=== PATIENT | female | born 1975 | race Caucasian/White ===

== ENCOUNTER → 2019-08-10 | Outpatient (CLI) | payer OTHER ==
--- NOTE | 2019-08-10 16:21 | WOMENS IMAGING REPORT ---
EXAM DESCRIPTION: 3D SCREENING MAMMO BILAT COMPLETED DATE/TIME: 08/10/2019 3:51 pm REASON FOR STUDY: Z12.31 SCREENING MAMMO Z12.31 ENCNTR SCREEN MAMMOGRAM FOR MALIGNANT NEOPLASM OF B RE COMPARISON: None. EXAM PARAMETERS: Views: Standard craniocaudal and mediolateral oblique views of each breast recorded using digital acquisition and breast tomosynthesis. Read with the assistance of CAD. .[facility] - [email or web address] Quality Assurance Coordinator Version 9.2 LIMITATIONS: None. FINDINGS: No suspicious masses, suspicious calcifications or architectural distortion. No areas of c oncern. IMPRESSION: NEGATIVE MAMMOGRAM. BIRADS 1. BREAST DENSITY: a. The breasts are almost entirely fatty. BIRAD: ASSESSMENT: 1 NEGATIVE RECOMMENDATION: ROUTINE SCREENING Please continue yearly bilateral screening mammography/tomosynthesis in July 2020 COMMENT: The patient has been notified of the results by letter per SA requirements. Additional no tification policies are in place for contacting patient with suspicious or incomplete findings. Quality ID #225: The [employer] recommends an annual screening mammogram for women aged 40 years or over. This facility utilizes a reminder system to ensure that all patients receive reminder letters, and/or direct phone calls for appointments. This includes reminders for routine scr eening mammograms, diagnostic mammograms, or other Breast Imaging Interventions when appropriate. Th is patient will be placed in the appropriate reminder system. TECHNICAL DOCUMENTATION: FINDING NUMBER: (1) ASSESSMENT: (1) JOB ID: [id number] [employer]- All Rights Reserved Reading location - IP/workstation name: [email or web address]
== END ==
LOC: WI 15:30
PROVIDERS: ATTEND Internal Medicine
DX: Z12.31 Encounter for screening mammogram for malignant neoplasm of breast (principal)
CPT/HCPCS: 77063; 77067

== ENCOUNTER 2020-05-16 06:41 | Observation (INO) | payer OTHER ==
[2020-05-11 12:03] LABS: ABSOLUTE BASOPHILS # (AUTO) 0.1 10^3/uL (0.0-0.2); ABSOLUTE EOSINOPHILS # (AUTO) 0.2 10^3/uL (0.0-0.6); ABSOLUTE LYMPHOCYTES (AUTO) 3.4 10^3/uL (0.5-4.7); ABSOLUTE MONOCYTES (AUTO) 0.8 10^3/uL (0.1-1.4); ABSOLUTE NEUT (AUTO) 5.9 10^3/uL (1.7-8.2); BASOPHILS % (AUTO) 1.2 % (0-2); EOSINOPHILS % (AUTO) 2.1 % (0-6); HEMATOCRIT 41.3 % (36.0-47.0); HEMOGLOBIN 13.7 g/dL (12.0-15.5); LYMPHOCYTES % (AUTO) 32.4 % (13-45); MEAN CORPUSCULAR HEMOGLOBIN 27.2 pg (27.0-33.4); MEAN CORPUSCULAR HGB CONC 33.2 g/dL (32.0-36.0); MEAN CORPUSCULAR VOLUME 82 fl (80-97); MONOCYTES % (AUTO) 7.7 % (3-13); PLATELET COUNT 442 10^3/uL (150-450); RED BLOOD COUNT 5.04 10^6/uL (3.72-5.28); RED CELL DISTRIBUTION WIDTH 17.2 % (11.5-14.0); SEGMENTED NEUTROPHILS % (AUTO) 56.6 % (42-78); TOTAL CELLS COUNTED % (AUTO) 100 %; WHITE BLOOD COUNT 10.4 10^3/uL (4.0-10.5)
[2020-05-11 12:23] LABS: ANION GAP 8 (5-19); BLOOD UREA NITROGEN 14 mg/dL (7-20); CALCIUM 9.5 mg/dL (8.4-10.2); CARBON DIOXIDE 29 mmol/L (22-30); CHLORIDE 100 mmol/L (98-107); GLUCOSE 94 mg/dL (75-110); POTASSIUM 4.9 mmol/L (3.6-5.0)
--- NOTE | 2020-05-12 10:24 | EKG REPORT ---
SEVERITY:- BORDERLINE ECG - SINUS RHYTHM PROBABLE LEFT ATRIAL ABNORMALITY BORDERLINE T ABNORMALITIES, ANT-LAT LEADS : Confirmed by: Kimberly Harper 12-May-2020 10:23:07
[~2020-05-16 06:41] MED LIST: LACTATED RINGERS 1000 ML IV PRN; LIDOCAINE 0.5% INJ-PF (5 MG/ML) 50 ML SDV SUBCUT PRN
[2020-05-16] MEDS ORDERED: CEFAZOLIN 2 GM/D5W RTU 2 GM/50 ML RTUPB IV ONE (07:47)
[2020-05-16 07:59] LABS: POTASSIUM 4.3 mmol/L (3.6-5.0)
[2020-05-16 07:59] LABS: CALCIUM 9.5 mg/dL (8.4-10.2); PHOSPHORUS 3.8 mg/dL (2.5-4.5)
[2020-05-16] MEDS ORDERED: BUPIVACAINE HCL 0.5%/EPI 1:200000 INJ 1.8 ML CARTRIDGE ONE (09:43)
[2020-05-16] MEDS ORDERED: OXYMETAZOLINE HCL 0.05% NASAL SPRAY 15 ML BOTTLE ONE (09:44)
[2020-05-16] MEDS ORDERED: PROPOFOL INJ 200 MG/20 ML VIAL IV ONE (09:45)
[2020-05-16] MEDS ORDERED: MORPHINE SULFATE 10 MG/ML INJ ONE (09:45)
[2020-05-16] MEDS ORDERED: ONDANSETRON HCL INJ/PF 4 MG/2 ML SDV ONE (09:45)
[2020-05-16] MEDS ORDERED: MIDAZOLAM 2 MG/2 ML INJ ONE (09:45)
[2020-05-16] MEDS ORDERED: FENTANYL CITRATE INJ/PF 100 MCG/2 ML AMPUL ONE (09:45)
[2020-05-16] MEDS ORDERED: MEPERIDINE HCL/PF INJ 25 MG/1 ML DISP.SYRIN IV PRN (13:25)
[2020-05-16] MEDS ORDERED: OXYCODONE-ACETAMINOPHEN 5-325 MG TABLET PO PRN ×2 (13:25)
[2020-05-16] MEDS ORDERED: MORPHINE SULFATE 10 MG/ML INJ IV PRN ×2 (13:25→14:02)
[2020-05-16] MEDS ORDERED: ONDANSETRON HCL INJ/PF 4 MG/2 ML SDV IV PRN ×2 (13:25→14:02)
[2020-05-16] MEDS ORDERED: PROMETHAZINE HCL INJ 25 MG/1 ML VIAL IV PRN ×2 (13:25→14:02)
[2020-05-16] MEDS ORDERED: FENTANYL CITRATE INJ/PF 100 MCG/2 ML AMPUL IV PRN ×3 (13:25)
[2020-05-16] MEDS: MORPHINE SULFATE 10 MG/ML INJ ONE ×2 (13:53→14:00)
[2020-05-16] MEDS ORDERED: METOCLOPRAMIDE HCL INJ/PF 10 MG/2 ML SDV ONE (14:34)
[2020-05-16] MEDS ORDERED: PHENYLEPHRINE HCL INJ/PF 10 MG/1 ML SDV ONE (14:34)
[2020-05-16] MEDS ORDERED: DIPHENHYDRAMINE HCL 50 MG/ML VIAL ONE (14:34)
[2020-05-16] MEDS ORDERED: ROCURONIUM BROMIDE INJ 50 MG/5 ML VIAL IV ONE (14:34)
[2020-05-16] MEDS ORDERED: SUCCINYLCHOLINE CHLORIDE INJ 200 MG/10 ML VIAL ONE (14:34)
[2020-05-16] MEDS ORDERED: GLUCAGON,HUMAN RECOMB 1 MG INJ IM PRN (16:35)
[2020-05-16] MEDS ORDERED: DEXTROSE 40% GEL 15 GM TUBE PO PRN ×2 (16:35)
[2020-05-16] MEDS ORDERED: DEXTROSE 50%-WATER 25 GM/50 ML DISP.SYRIN IV PRN ×2 (16:35)
[2020-05-16] MEDS ORDERED: (PENDING PHARMACY ID) (Gabapentin [Gabapentin] 800 MG) PO SCH (18:00)
[2020-05-16] MEDS ORDERED: NICOTINE 7 MG/24 HR PATCH.TD24 TD PRN (18:17)
--- NOTE | 2020-05-16 18:25 | PDOC CONSULTATION ---
Consultation Consult Date: 05/16/20 Attending physician:: SHAWNA IRVIN Provider Consulted: RENA GRADY History of Present Illness Admission Date/PCP: RICHIE OLIVER MD Patient complains of: Thyroidectomy History of Present Illness: RAJWINDER DURAN is a 44 year old female with a past medical history significant for Diabetes mellitus, hypertension, hyperlipidemia, diabetic neuropathy, gout, and obesity who was admitted by ENT, Dr. Cook, for thyroidectomy related to malignant neoplasm of the thyroid gland. Hospitalist service is consulted postoperatively for medical management. Patient was seen on afternoon rounds with her present. She is found sitting up to the edge of the bed, comfortably, on room air. Maintaining oxygen saturations of 93%. She reports that her pain is adequately controlled at present. Surgical dressing is in place with dried blood noted. All questions and concerns addressed. Reassurance provided. Patient denies fever, chills, chest pain, palpitations, dyspnea, cough, abdominal pain, nausea and vomiting. No concerns per nursing. Past Medical History Cardiac Medical History: Reports: Hyperlipidema, Hypertension Denies: Coronary Artery Disease, Myocardial Infarction Pulmonary Medical History: Reports: Other - NICOLA Neurological Medical History: Denies: Ischemic CVA, Seizures Endocrine Medical History: Reports: Diabetes Mellitus Type 2, Obesity Malignancy Medical History: Reports: Other - Thyroid GI Medical History: Reports: None Musculoskeltal Medical History: Reports: None Denies: Arthritis Skin Medical History: Reports: None Psychiatric Medical History: Reports: None Traumatic Medical History: Reports: None Hematology: Denies: Anemia Infectious Medical History: Reports: None Past Surgical History Past Surgical History: Reports: None Social History Information Source: Patient Lives with: Family Smoking Status: Current Every Day Smoker Electronic Cigarette use?: No Frequency of Alcohol Use: None Hx Recreational Drug Use: No Drugs: None Hx Prescription Drug Abuse: No - Advance Directive Resuscitation Status: Full Code Family History Family History: Reviewed & Not Pertinent Parental Family History Reviewed: Yes Children Family History Reviewed: Yes Sibling(s) Family History Reviewed.: Yes Medication/Allergy Home Medications: Allopurinol [Zyloprim 100 mg Tablet] 100 mg PO Q2DAYS 05/11/20 Fenofibrate 160 mg PO DAILY 05/11/20 Gabapentin 800 mg PO QID 05/11/20 Lisinopril/Hydrochlorothiazide [Lisinopril-Hctz 10-12.5 mg Tab] 1 each PO DAILY 05/11/20 Omeprazole 40 mg PO DAILY 05/11/20 Semaglutide [Ozempic] 1 mg SQ FOSS@1000 05/11/20 Cyclobenzaprine HCl [Flexeril 10 mg Tablet] 10 mg PO QID 05/16/20 Allergies/Adverse Reactions: No Known Allergies Allergy (Verified 05/16/20 07:00) Review of Systems Constitutional: ABSENT: chills, fever(s), headache(s), weight gain, weight loss Eyes: ABSENT: visual disturbances Ears: ABSENT: hearing changes Cardiovascular: ABSENT: chest pain, dyspnea on exertion, edema, orthropnea, palpitations Respiratory: ABSENT: cough, hemoptysis Gastrointestinal: ABSENT: abdominal pain, constipation, diarrhea, hematemesis, hematochezia, nausea, vomiting Genitourinary: ABSENT: dysuria, hematuria Musculoskeletal: ABSENT: joint swelling Integumentary: ABSENT: rash, wounds Neurological: ABSENT: abnormal gait, abnormal speech, confusion, dizziness, focal weakness, syncope Psychiatric: ABSENT: anxiety, depression, homidical ideation, suicidal ideation Endocrine: ABSENT: cold intolerance, heat intolerance, polydipsia, polyuria Hematologic/Lymphatic: ABSENT: easy bleeding, easy bruising Physical Exam Vital Signs: Temp Pulse Resp BP Pulse Ox 97.5 F 92 18 108/55 L 97 05/16/20 17:15 05/16/20 17:15 05/16/20 17:15 05/16/20 17:15 05/16/20 17:15 Intake & Output 05/15/20 05/16/20 05/17/20 06:59 06:59 06:59 Intake Total 2400 Output Total 1230 Balance 1170 Weight 141.52 kg General appearance: PRESENT: no acute distress, cooperative, morbidly obese, well-developed, well-nourished Head exam: PRESENT: atraumatic, normocephalic Eye exam: PRESENT: conjunctiva pink, EOMI, PERRLA. ABSENT: scleral icterus Mouth exam: PRESENT: moist, tongue midline Neck exam: PRESENT: other - Thyroidectomy; surgical dressing in place, dried blood noted. Respiratory exam: PRESENT: clear to auscultation marcin, symmetrical, unlabored. ABSENT: rales, rhonchi, wheezes Cardiovascular exam: PRESENT: RRR. ABSENT: diastolic murmur, rubs, systolic murmur Pulses: PRESENT: normal dorsalis pedis pul Vascular exam: PRESENT: normal capillary refill Extremities exam: PRESENT: full ROM. ABSENT: calf tenderness, clubbing, pedal edema Neurological exam: PRESENT: alert, awake, oriented to person, oriented to place, oriented to time, oriented to situation, CN II-XII grossly intact, other - Drowsy/forgetful. ABSENT: motor sensory deficit Psychiatric exam: PRESENT: appropriate affect, normal mood. ABSENT: homicidal ideation, suicidal ideation Skin exam: PRESENT: dry, intact, warm. ABSENT: cyanosis, rash Results Laboratory Results: 05/11/20 11:29 05/16/20 14:32 05/16/20 05/16/20 05/16/20 07:34 07:34 07:35 Potassium 4.3 Glucose 115 H Calcium 9.5 Phosphorus 3.8 Magnesium 1.9 Albumin 4.0 Serum HCG, Qual NEGATIVE PTH Intact 05/16/20 05/16/20 05/16/20 07:35 10:20 14:32 Potassium Glucose Calcium Phosphorus Magnesium Albumin Serum HCG, Qual PTH Intact 19.7 27.1 13.1 05/16/20 14:32 Potassium Glucose 175 H Calcium Phosphorus Magnesium Albumin Serum HCG, Qual PTH Intact Assessment and Plan - Diagnosis (1) Diabetes Qualifiers: Diabetes mellitus type: type 2 Diabetes mellitus long-term insulin use: with long-term use Is this a current diagnosis for this admission?: Yes Plan: Holding oral medications while admitted. Patient is placed on a consistent carb diet. Accu-Cheks before meals and at bedtime with Humalog for sliding scale coverage. Hypoglycemia protocol in place. (2) Hypertension Is this a current diagnosis for this admission?: Yes Plan: All medications are reconciled and resumed. Adjust as indicated. (3) NICOLA (obstructive sleep apnea) Is this a current diagnosis for this admission?: Yes Plan: CPAP nightly (4) GERD (gastroesophageal reflux disease) Is this a current diagnosis for this admission?: Yes Plan: PPI therapy (5) S/P thyroidectomy Is this a current diagnosis for this admission?: Yes Plan: Primary management per ENT. Per Dr. Irvin; hold on starting calcium supplementation pending lab evaluation. Ca, Phos, Mag, Albumin levels pending. - Time Time Spent with patient: 35 or more minutes Medications reviewed and adjusted accordingly: Yes Anticipated Discharge Disposition: Home, Self Care Anticipated Discharge Timeframe: per ENT
[2020-05-16] MEDS: GABAPENTIN 400 MG CAPSULE PO SCH ×2 (18:49→23:28)
[2020-05-16] MEDS: CYCLOBENZAPRINE HCL 10 MG TABLET PO SCH ×2 (18:49→21:35)
[2020-05-16 19:25] LABS: ALBUMIN 4.1 g/dL (3.5-5.0); CALCIUM 9.3 mg/dL (8.4-10.2); PHOSPHORUS 4.5 mg/dL (2.5-4.5)
[2020-05-16] MEDS: HYDROCODONE/ACETAMINOPHEN 5-325 MG TABLET PO PRN (20:05)
[2020-05-16] MEDS: INSULIN LISPRO 100 UNIT/ML 3 ML VIAL SUBCUT SCH (21:35)
[2020-05-16] MEDS: NORMAL SALINE 1000 ML 1,000 ML IV PRN (21:38)
[2020-05-17] MEDS: NORMAL SALINE 1000 ML 1,000 ML IV PRN (05:13)
[2020-05-17] MEDS: GABAPENTIN 400 MG CAPSULE PO SCH ×2 (05:14→13:20)
[2020-05-17] MEDS: HYDROCODONE/ACETAMINOPHEN 5-325 MG TABLET PO PRN (06:24)
[2020-05-17] MEDS ORDERED: MAGNESIUM HYDROXIDE SUSP 30 ML UDCUP PO PRN (08:11)
[2020-05-17] MEDS: INSULIN LISPRO 100 UNIT/ML 3 ML VIAL SUBCUT SCH ×3 (08:34→16:32)
[2020-05-17] MEDS ORDERED: HYDROCHLOROTHIAZIDE 12.5 MG TABLET PO SCH (10:00)
[2020-05-17] MEDS ORDERED: (PENDING PHARMACY ID) (Fenofibrate [Fenofibrate] 160 MG) PO SCH (10:00)
[2020-05-17] MEDS ORDERED: ALLOPURINOL 100 MG TABLET PO SCH (10:00)
[2020-05-17] MEDS ORDERED: FENOFIBRATE NANOCRYSTALLIZED 145 MG TABLET PO SCH (10:00)
[2020-05-17] MEDS ORDERED: LISINOPRIL 10 MG TABLET PO SCH (10:00)
[2020-05-17] MEDS ORDERED: (PENDING PHARMACY ID) (Lisinopril/Hydrochlorothiazide [Lisinopril-Hctz 10-12.5 Mg Tab] 1 E PO SCH (10:00)
[2020-05-17] MEDS ORDERED: PANTOPRAZOLE SODIUM 40 MG TABLET.DR PO SCH (10:00)
[2020-05-17] MEDS: CYCLOBENZAPRINE HCL 10 MG TABLET PO SCH ×2 (10:52→16:14)
[2020-05-17 14:55] LABS: ALBUMIN 3.5 g/dL (3.5-5.0); CALCIUM 8.8 mg/dL (8.4-10.2); PHOSPHORUS 3.3 mg/dL (2.5-4.5)
--- NOTE | 2020-05-17 15:36 | PDOC PROGRESS REPORT ---
Subjective Progress Note for:: 05/17/20 Subjective:: RAJWINDER DURAN is a 44 year old female with a past medical history significant for Diabetes mellitus, hypertension, hyperlipidemia, diabetic neuropathy, gout, and obesity who was admitted by ENT, Dr. Oliver, for thyroidectomy related to malignant neoplasm of the thyroid gland. Hospitalist service is consulted postoperatively for medical management. Patient is seen on afternoon rounds with present. She was sleeping, on CPAP, but woke easily when I said her name. CPAP was removed, patient sat to edge of bed, comfortably on room air. Patient maintain oxygen saturations 90 to 93% while speaking in full sentences without increased work of breathing. Lizy cordova tells me that she is followed by Dr. Onofre and recently had a PFT that was reportedly normal. She does admit to continue 1 pack per daily use; proximately 36 years of smoking Long discussion had regarding the importance of smoking cessation. She specifically denies dyspnea, orthopnea, cough, increased work of breathing, palpitations, lightheadedness either at rest or while ambulatory. Per , she appears to be at her normal respiratory status; he also advises that they have CPAP and wheelchair at home and feels comfortable taking her home once cleared by ENT. M no other questions or concerns at this time. Reason For Visit: S/P TOTAL THYROIDECTOMY FOR LEFT PAPILLARY THYROID Physical Exam Vital Signs: Temp Pulse Resp BP Pulse Ox 98.1 F 93 20 110/68 95 05/17/20 15:00 05/17/20 15:00 05/17/20 15:00 05/17/20 15:00 05/17/20 15:00 Pulse Oximeter Continuous Start: 05/16/20 14:03 Freq: RTQ4 Status: Active Protocol: Document 05/17/20 13:00 HCR (Rec: 05/17/20 14:40 HCR [id number]) Pulse Oximetry Assessment Oxygen Saturation (92-100) 94 Oxygen Flow Rate (L/min) 4 Oxygen Delivery Method Nasal Cannula Equipment Usage Equipment in Use Continuous SpO2 Machine # 7 Intake & Output 05/16/20 05/17/20 05/18/20 06:59 06:59 06:59 Intake Total 3660 1000 Output Total 1230 Balance 2430 1000 Weight 141.52 kg General appearance: PRESENT: no acute distress, cooperative, morbidly obese, well-developed, well-nourished Head exam: PRESENT: atraumatic, normocephalic Eye exam: PRESENT: conjunctiva pink, EOMI, PERRLA. ABSENT: scleral icterus Mouth exam: PRESENT: moist, tongue midline Respiratory exam: PRESENT: clear to auscultation marcin, symmetrical, unlabored. ABSENT: rales, rhonchi, wheezes Cardiovascular exam: PRESENT: RRR. ABSENT: diastolic murmur, rubs, systolic murmur Vascular exam: PRESENT: normal capillary refill Rectal exam: PRESENT: deferred Extremities exam: PRESENT: full ROM. ABSENT: calf tenderness, clubbing, pedal edema Musculoskeletal exam: PRESENT: ambulatory Neurological exam: PRESENT: alert, awake, oriented to person, oriented to place, oriented to time, oriented to situation, CN II-XII grossly intact. ABSENT: motor sensory deficit Psychiatric exam: PRESENT: appropriate affect, normal mood. ABSENT: homicidal ideation, suicidal ideation Skin exam: PRESENT: dry, intact, warm. ABSENT: cyanosis, rash Results Laboratory Results: 05/11/20 11:29 05/17/20 13:49 05/16/20 05/17/20 18:47 13:49 Potassium 4.0 Calcium 9.3 8.8 Phosphorus 4.5 3.3 Magnesium 1.9 1.7 Albumin 4.1 3.5 Assessment and Plan - Diagnosis (1) Diabetes Qualifiers: Diabetes mellitus type: type 2 Diabetes mellitus terminal clerk insulin use: w ith terminal clerk use Is this a current diagnosis for this admission?: Yes Plan: Holding oral medications while admitted. Patient is placed on a consistent carb diet. Accu-Cheks before meals and at bedtime with Humalog for sliding scale coverage. Hypoglycemia protocol in place. Recommend patient resume her outpatient diabetes management upon discharge. Lifestyle modification, dietary and medication compliance strongly encouraged. (2) Hypertension Is this a current diagnosis for this admission?: Yes Plan: All medications are reconciled and resumed. Continue home regimen on discharge. (3) NICOLA (obstructive sleep apnea) Is this a current diagnosis for this admission?: Yes Plan: CPAP nightly Strongly encourage smoking cessation and weight loss. Follow-up with Dr. Onofre as scheduled. (4) GERD (gastroesophageal reflux disease) Is this a current diagnosis for this admission?: Yes Plan: PPI therapy (5) S/P thyroidectomy Is this a current diagnosis for this admission?: Yes Plan: Primary management per ENT. Per Dr. Oliver; hold on starting calcium supplementation pending lab evaluation. Ca, Phos, Mag, Albumin levels pending. (6) Tobacco dependence Is this a current diagnosis for this admission?: Yes Plan: Smoking cessation strongly encouraged. - Plan Summary Summary: The patient is cleared from the hospitalist service for discharge to home with follow-up with PCP and pulmonology as previously scheduled. Follow-up with ENT and/or endocrinology per Dr. Oliver's expertise. We will sign off; please reconsult if the hospitalist service can be of any f urther assistance. - Time Time Spent with patient: 35 or more minutes Smoking Cessation Education: 3 to 10 minutes Medications reviewed and adjusted accordingly: Yes Anticipated Discharge Disposition: Home, Self Care Anticipated Discharge Timeframe: Per ENT
[2020-05-17 18:27] VITALS: BP 103/57
[2020-05-20] MEDS ORDERED: (PENDING PHARMACY ID) (Semaglutide [Ozempic] 1 MG) SUBCUT SCH (10:00)
--- NOTE | 2020-05-21 07:31 | Operative Report ---
Operative Report-[facility] Operative Report: Date of procedure: May 16, 2020 Preoperative diagnoses: 1. Left dominant thyroid nodule with confirmed papillary thyroid carcinoma 2. Excessive BMI of 53.6 3. Diabetes 4. Obstructive sleep apnea Postoperative diagnoses: 1. Left dominant thyroid nodule with confirmed papillary thyroid carcinoma 2. Excessive BMI of 53.6 3. Diabetes 4. Obstructive sleep apnea Operation performed: 1. Total Thyroidectomy (CPT CODE 33361) 2. Increased/extra time required before, throughout the case, and at the end of the case for patient positioning due to excessive BMI of 53.6 3. Intraoperative nerve monitoring (NIM) Primary Surgeon of Record: Dr. Ok Oliver Assisting surgeon: Dr. Kendrick Ybarra Anesthetic: General endotracheal tube anesthesia Anesthesia provider: NILS Espinosa Estimated blood loss: 30 mL Fluids: 1000 mL Complications: None Drains: None modified [place] drain Sponge count: Verified Needle Count: Verified Materials forwarded as specimen: 1. Total thyroid gland with left dominant thyroid nodule identified Findings: 1. Total thyroid gland with left dominant thyroid nodule. 2. The bilateral recurrent laryngeal nerves were identified and stimulated appropriately throughout and at the end of the case at 1 mA. 3. There were bilateral parathyroid gland prospects identified and preserved. 4. There was no obvious lymphadenopathy identified. Indications: This is a 44-year-old white female patient who has been seen and evaluated [place] [facility]. The patient had been referred by endocrinology where she was evaluated with a left dominant thyroid nodule identified which on FNA was consistent with papillary thyroid carcinoma, [place] level 6 finding. The patient is also with concerning medical comorbidities and a total thyroidectomy was discussed which both she and her were in favor of. There was an extensive discussion held with the patient with plan made to proceed with thyroid surgery. The patient voiced an understanding of her medical findings to include those relating to her thyroid disorder and desired proceed with total thyroidectomy. The patient voiced an understanding of the procedure/surgery and all of the risks and complications, and consent was obtained. Procedure: The patient was taken to the main operating room and placed on the operating room table in the supine position. Appropriate monitors were placed. Using mask and IV access, general anesthesia was induced. The patient was next transorally intubated without difficulty. The patient was then positioned for thyroid surgery. The patient's anterior neck had a planned incision site marked with a surgical marking pen followed by infiltration with local anesthetic with epinephrine. The patient was then prepped and draped in a sterile fashion for thyroid surgery. Next, an incision was made down through the level of the subcutaneous tissues and platysma. Using blunt and sharp dissection as well as Bovie and bipolar electrocautery skin/soft tissue flaps were elevated in a sub- platysmal fashion without difficulty. The strap muscles were next identified and the midline was divided allowing the strap muscles to be mobilized and reflected laterally. Attention was turned to the right side, and dissection proceeded utilizing blunt and sharp dissection. The superior and inferior poles of the thyroid lobe were clearly identified. The vasculature in these areas was clearly identified and divided using bipolar electrocautery and/or the Harmonic handpiece. During this process of mobilizing the right thyroid lobe there were parathyroid gland prospects that were identified and preserved. Next the right recurrent laryngeal nerve was clearly identified and preserved. At this point the thyroid gland was released from the area of Ferraro's ligament and mobilized onto the anterior tracheal wall. The right recurrent laryngeal nerve was stimulated at a setting of 1 milliamp without difficulty. Next, the neck was thoroughly irrigated and suctioned. Additional hemostasis was provided with bipolar electrocautery. Findings were also as noted above. At this point, the left strap muscles were addressed in a similar manner. Dissection proceeded utilizing blunt and sharp dissection. The left strap muscles were reflected laterally. The superior and inferior poles of the thyroid lobe were clearly identified. The vasculature in these areas was clearly identified as on the right. During this process of mobilizing the left thyroid lobe there were parathyroid gland prospects that were identified and preserved. Next, the left recurrent laryngeal nerve was clearly identified and preserved. At this point the thyroid gland was released from the area of Ferraro's ligament and mobilized onto the anterior tracheal wall and removed. The left recurrent laryngeal nerve was stimulated at a setting of 1 milliamp without difficulty. Next, the neck was thoroughly irrigated and suctioned. Additional hemostasis was provided with bipolar electrocautery. Findings were also as noted above. Adequate hemostasis was noted and the strap muscles were re-approximated in the midline with Vicryl suture. During this process a modified Juan drain was placed into the left and right wound beds and brought out to the level of the skin where it was secured in place with suture. The platysma was also re- approximated with Vicryl suture. 5-0 Monocryl suture was next utilized for re- approximation of the deep dermal tissue layer and for re-approximation of the skin margins via a continuous dermal suture. Next, the skin was cleaned and dried followed by placement of Mastisol, Steri- Strips, and a fluffs pressure dressing. The patient was then returned to the anesthesia staff and was allowed to emerge from general anesthesia. The patient was extubated in the main operating room and was then transported to the post- anesthesia recovery unit in stable condition. There were no complications.
== END 2020-05-17 18:52 | disposition home or self-care (01) ==
LOC: OROUT 06:41 → 2N 14:02 → OROUT 14:02 → 2N 14:55
PROVIDERS: ADMIT Otolaryngology; ATTEND Otolaryngology
DX: C73 Malignant neoplasm of thyroid gland (principal); E66.01 Morbid (severe) obesity due to excess calories; G47.33 Obstructive sleep apnea (adult) (pediatric); K21.9 Gastro-esophageal reflux disease without esophagitis; I10 Essential (primary) hypertension; E04.0 Nontoxic diffuse goiter; E04.1 Nontoxic single thyroid nodule; E11.42 Type 2 diabetes mellitus with diabetic polyneuropathy; M10.9 Gout, unspecified; E78.2 Mixed hyperlipidemia; F17.210 Nicotine dependence, cigarettes, uncomplicated; Z68.43 Body mass index [BMI] 50.0-59.9, adult; Z98.890 Other specified postprocedural states; Z79.899 Other long term (current) drug therapy; Z79.4 Long term (current) use of insulin; Z03.818 Encounter for observation for suspected exposure to other biological agents ruled out
CPT/HCPCS: 99406; 60240; 93005; 36415 ×3; 82962 ×2; 82040 ×2; 82310 ×2; 82947; 83735 ×2; 84100 ×2; 84132 ×2; 84703; 85025; 87635; 80048; 83970; 88307 ×2; 93010; 94762 ×2; 00320; G0378 ×2; J2250; J3490 ×5; J1200; J3010; J1815; J2765; J2270; J2370; J0330; J2405; J7030 ×2; J2704; J0690; C9803; 320

== ENCOUNTER → 2020-08-20 | Outpatient (CLI) | payer OTHER ==
--- NOTE | 2020-08-21 12:04 | WOMENS IMAGING REPORT ---
EXAM DESCRIPTION: 3D SCREENING MAMMO BILAT IMAGES COMPLETED DATE/TIME: 08/20/2020 3:02 pm REASON FOR STUDY: Z12.31 ENCOUNTER FOR SCREENING MAMMOGRAM FOR MALIGNANT NEOPLASM OF BREAST Z12.31 ENCNTR SCREEN MAMMOGRAM FOR MALIGNANT NEOPLASM OF RACHEL COMPARISON: 08/10/2019. EXAM PARAMETERS: Views: Standard craniocaudal and mediolateral oblique views of each breast recorded using digital acquisition and breast tomosynthesis. Read with the assistance of CAD. .[facility] - [employer] Compliance Specialist Version 9.2 LIMITATIONS: None. FINDINGS: No suspicious masses, suspicious calcifications or architectural distortion. No areas of c oncern. IMPRESSION: NEGATIVE MAMMOGRAM. BIRADS 1. BREAST DENSITY: a. The breasts are almost entirely fatty. BIRAD: ASSESSMENT: 1 NEGATIVE RECOMMENDATION: ROUTINE SCREENING COMMENT: The patient has been notified of the results by letter per MQSA requirements. Additional no tification policies are in place for contacting patient with suspicious or incomplete findings. Quality ID #225: The [employer] recommends an annual screening mammogram for women aged 40 years or over. This facility utilizes a reminder system to ensure that all patients receive reminder letters, and/or direct phone calls for appointments. This includes reminders for routine scr eening mammograms, diagnostic mammograms, or other Breast Imaging Interventions when appropriate. Th is patient will be placed in the appropriate reminder system. TECHNICAL DOCUMENTATION: FINDING NUMBER: (1) ASSESSMENT: (1) JOB ID: [id number] 2010 [email or web address]- All Rights Reserved Reading location - IP/workstation name: [email or web address]
== END ==
LOC: WI 14:40
PROVIDERS: ATTEND Internal Medicine
DX: Z12.31 Encounter for screening mammogram for malignant neoplasm of breast (principal)
CPT/HCPCS: 77063; 77067